=== PATIENT | female | born 1980 | race Caucasian/White ===

== ENCOUNTER → 2018-12-08 10:28 | Outpatient (ROUT) | payer OTHER, SELFPAY | PROVIDERS: Visit Provider Physician Assistant | DX: J02.9 Acute pharyngitis, unspecified (principal) | CPT/HCPCS: 87070; 87077; 87147 ==

== ENCOUNTER → 2020-06-05 11:41 | Outpatient (CLI) | payer OTHER, SELFPAY ==
--- NOTE | 2020-06-05 11:43 | DI.RAD.S_ITS ---
PROCEDURE: XR FOOT RT MIN 3V INDICATIONS: Right foot pain TECHNIQUE: 3 views of the foot were acquired. COMPARISON: None. FINDINGS: Bones: No fractures or dislocations. No suspicious bony lesions. Plantar calcaneal spur. Soft tissues: No tibiotalar joint effusion. Achilles tendon appears normal. IMPRESSION: No acute osseous abnormality. Dictated by: Jose Daniel Callejas M.D. on 06/05/2020 at 10:52 Approved by: Jose Daniel Callejas M.D. on 06/05/2020 at 10:53
== END ==
PROVIDERS: Referring Provider Physician Assistant; Visit Provider Physician Assistant
DX: M79.671 Pain in right foot (principal)
CPT/HCPCS: 73630

== ENCOUNTER → 2020-12-29 14:22 | Outpatient (CLI) | payer OTHER, SELFPAY ==
--- NOTE | 2020-12-29 14:23 | DI.MRI.S_ITS ---
PROCEDURE: MR ANKLE RT WO CON INDICATIONS: Plantar fascial fibromatosis TECHNIQUE: Noncontrast sagittal T1 spin echo and T2 fast spin echo with fat saturation, axial proton density fast spin echo and T2 fast spin echo with fat saturation, coronal T1 spin echo and T2 fast spin echo with fat saturation through the ankle/hindfoot. COMPARISON: None. FINDINGS: Image quality: Excellent. Bones and joints: No acute fracture. Small focus of T2 hyperintense signal in the calcaneus adjacent to the plantar fascia, compatible with contusion. No osteochondral injuries of the talar dome. Small tibiotalar articulation joint effusion. Medial structures: The posterior tibialis, flexor digitorum longus, and flexor hallucis longus tendons are intact. Non circumferential fluid is seen about the posterior tibialis. The posterior tibial neurovascular bundle appears normal within the tarsal tunnel, without extrinsic mass effect. The deltoid ligament is intact. The spring ligament is intact intact. Lateral structures: Disruption of the anterior talofibular ligament. The calcaneofibular and posterior talofibular ligaments appear intact. More superiorly, the anterior and posterior tibiofibular ligaments appear intact. T2 hyperintense signal within the tibiofibular syndesmosis measures slightly greater than 2 mm. The peroneus longus and brevis tendons demonstrate normal location . Non circumferential fluid is seen about the peroneal tendons. The sinus tarsi demonstrates normal fatty signal, without edema, fibrosis, or cyst formation. The calcaneonavicular and calcaneocuboid appear intact. Anterior structures: The tibialis anterior, extensor hallucis longus, and extensor digitorum longus tendons appear intact. The dorsal talonavicular ligament appears intact. Posterior and plantar structures: Achilles tendon is intact. Thickening and inflammatory change of the medial plantar fascia with evidence of partial tear. No abductor digiti quinti muscle atrophy to suggest Mathew neuropathy. IMPRESSION: 1. Disruption of the anterior talofibular ligament. 2. Small tibiotalar articulation joint effusion. 3. Minimal widening of the tibiofibular syndesmosis. 4. Non circumferential fluid surrounding the peroneal and posterior tibialis tendons. 5. Inflammation and partial tear of the medial plantar fascia as well as small contusion of the calcaneus. Dictated by: Juan David Jackson M.D. on 12/29/2020 at 17:05 Approved by: Juan David Jackson M.D. on 12/29/2020 at 17:24
== END ==
PROVIDERS: Referring Provider Podiatrist; Visit Provider Podiatrist
DX: M72.2 Plantar fascial fibromatosis (principal); M25.471 Effusion, right ankle; S96.811A Strain of other specified muscles and tendons at ankle and foot level, right foot, initial encounter; S90.31XA Contusion of right foot, initial encounter
CPT/HCPCS: 73721

== ENCOUNTER 2022-07-25 09:51 | Emergency (ER) | payer OTHER, SELFPAY ==
[2022-07-25 09:54] VITALS: BP 182/93; PULSE 91; RESP 18; TEMP 36.8; O2SAT 99; BMI 39.5
--- NOTE | 2022-07-25 10:20 | ED_ITS ---
HPI - Female Genitourinary General Chief complaint: Urogenital-Female Stated complaint: possible UTI, abcess on lip Time Seen by Provider: 07/25/22 10:08 Source: patient Mode of arrival: Ambulatory History of Present Illness HPI Narrative: Patient here for 2 complaints. Both started on Saturday, 2 days ago. Patient has had dysuria and frequency. Patient states feels like another urinary tract infection. It has been about 20 years since her last urinary tract infection. No fever chills. Patient also complains of left upper lip lesion. Patient states feels like another cold sore. She is had this before. Has had some oozing from this as well. No known sick contacts. It started as a vesicle. Now is flattened and edematous. Mildly tender Related Data Previous Rx's Medication Instructions Recorded paroxetine HCl 10 mg tablet (Paxil) 10 mg PO DAILY depressive symptoms 08/16/21 with anxiety #60 tabs cephalexin 500 mg capsule 500 mg PO QID #28 caps 07/25/22 mupirocin 2 % topical ointment 1 applic topical TID #15 grams 07/25/22 valacyclovir 1 gram tablet 1,000 mg PO BID #14 tabs 07/25/22 Allergies Allergy/AdvReac Type Severity Reaction Status Date / Time erythromycin base Allergy hives as Verified 07/25/22 10:13 an infant hydrocodone Allergy hives, Verified 07/25/22 10:13 violently ill Review of Systems Review of Systems Narrative: GENERAL: negative chills, fatigue, malaise, fever, sweats. HEENT: negative sinus pain, ear pain, sore throat RESPIRATORY: negative dyspnea, cough CARDIOVASCULAR: negative chest pain, palpitations GASTROINTESTINAL: negative nausea, vomiting, abdominal pain : Positive dysuria, frequency, negative hematuria MUSCULOSKELETAL: negative muscle or bony pain SKIN: negative rash, positive skin lesions NEUROLOGIC: negative weakness, numbness ROS Unobtainable: All systems reviewed & are unremarkable except as noted in HPI and below Patient History Medical History Abnormal menses No significant medical problems Substance Use Type: does not use Exam Narrative Exam Narrative: GENERAL: in no distress, not toxic not dyspneic HEAD: Normocephalic. EYES: Pupils equal round ENT: Mucous membranes moist. Left upper lip there is an area 3-4 mm in diameter. It is flat. Not vesicular. Honey-crusted covering. There is edema to the left upper lip as well. It is dry. Mild tender to touch. NECK: Trachea midline. No submandibular tenderness. GASTROINTESTINAL: Abdomen soft, non-tender, no peritoneal signs, no CVA tenderness BACK: No flank tenderness. NEURO: AOx4. SKIN: Warm and dry PSYCH: Not anxious, is cooperative Initial Vital Signs Initial Vital Signs: Vital Signs Temperature 98.3 F 07/25/22 09:54 Pulse Rate 91 H 07/25/22 09:54 Respiratory Rate 18 07/25/22 09:54 Blood Pressure 182/93 H 07/25/22 09:54 Pulse Oximetry 99 07/25/22 09:54 Oxygen Delivery Method Room Air 07/25/22 09:54 Course Orders Ordered: Discontinued Medications Cephalexin HCl (Cephalexin 250 Mg Capsule) 500 mg PO NOW ONE Stop: 07/25/22 10:13 Last Admin: 07/25/22 11:06 Dose: 500 mg Documented By: AMU Vital Signs Vital signs: Vital Signs - 8 hr 07/25/22 09:54 Temperature 98.3 F Pulse Rate 91 H Respiratory Rate 18 Blood Pressure 182/93 H Pulse Oximetry 99 Oxygen Delivery Method Room Air MDM - Female Genitourinary Lab Data Labs: Lab Results 07/25/22 07/25/22 Range/Units 10:02 10:02 Urine RBC 0-1/hpf (0-5/HPF) Urine WBC 1-5/hpf (0-5/HPF) Ur Squamous Epith Cells 1-5 /hpf (0-5/HPF) Urine Bacteria Moderate (10-30) H (None) Ur Culture Indicated? Cult not indicated Urine Test Negative (Negative) [facility] Narrative Medical decision making narrative: Patient here for 2 complaints. Both started on Saturday, 2 days ago. Patient has had dysuria and frequency. Patient states feels like another urinary tract infection. It has been about 20 years since her last urinary tract infection. No fever chills. Patient also complains of left upper lip lesion. Patient states feels like another cold sore. She is had this before. Has had some oozing from this as well. No known sick contacts. It started as a vesicle. Now is flattened and edematous. Mildly tender After history and exam [facility] CC: Lip lesion/dysuria Complicating co-morbidities: History UTI, history of oral cold sores Data collected from: Patient. Medical records reviewed: Walk-in clinic visit at this location just prior to arrival Differential considered: Includes but not limited to herpes simplex impetigo cystitis UTI pyelonephritis Exam documented above, pertinent findings include: Left upper lip lesion Lab Test results independently reviewed as above. Pertinent findings: None indicated this time for lip lesion Lesion on the lip is dry. Urinalysis moderate bacteria Treatments: Keflex Re-evaluations: Reviewed results with patient. Agrees with treatment plan. Keflex to treat for impetigo as well as UTI. Mupirocin ointment prescription provided as well. Discussion: Appropriate for discharge home. Nontoxic at discharge. Patient does have primary care to follow up with. Return precautions reviewed with patient. Patient desires discharge home. Diagnosis: Impetigo/UTI Discharge Plan Departure Patient Disposition: Home Clinical Impression: Cold sore, Urinary tract infection Instructions: DI for Urinary Tract Infection (UTI), DI for Impetigo, DI for Cold Sores Activity Restrictions/Additional Instructions: See family doctor in a week for re-evaluation. Prescription for cold sore as well as urinary tract infection has been provided for you. Prescription Ointment to the lip has been provided for you as well. Return if worse if any questions or concerns. Prescriptions: New valacyclovir 1 gram tablet 1,000 mg PO BID Qty: 14 0RF cephalexin 500 mg capsule 500 mg PO QID Qty: 28 0RF mupirocin 2 % ointment 1 applic topical TID MDD Five day duration Qty: 15 0RF No Action paroxetine HCl [Paxil] 10 mg tablet 10 mg PO DAILY Qty: 60 3RF Rx Instructions: Trial 1 pill each morning for 1 week, then increase to 2 pills each morning and maintain there unless not tolerated Referrals: Obdulio Lorenzo MD [Primary Care Provider] - Stand Alone Forms: Patient Portal/API
[2022-07-25 10:34] LABS: Pregnancy Test Urine Negative (Negative)
[2022-07-25 11:00] LABS: RBC Urine 0-1/HPF (0-5/HPF); Squamous Epithelial Cell Urine 1-5 /HPF (0-5/HPF); WBC Urine 1-5/HPF (0-5/HPF)
[2022-07-25 11:01] LABS: Bacteria Urine Moderate (10-30)
[2022-07-25 11:02] LABS: Culture Indicated Urine Cult Not Indicated
[2022-07-25] MEDS: cephALEXin 250 MG CAPSULE 500 MG PO (11:06)
== END 2022-07-25 11:10 | disposition home or self-care (01) ==
PROVIDERS: Emergency Provider Emergency Medicine; PCP Pediatrics
DX: N39.0 Urinary tract infection, site not specified (principal); B00.1 Herpesviral vesicular dermatitis
CPT/HCPCS: 81015; 81025; 99283

== ENCOUNTER → 2022-12-03 16:07 | Outpatient (CLI) | payer OTHER, SELFPAY ==
--- NOTE | 2022-12-03 16:17 | DI.RAD.S_ITS ---
PROCEDURE: XR FINGER LT MIN 2V INDICATIONS: 2nd finger trauma and pain TECHNIQUE: AP hand, 2 views of the 2nd finger(s) acquired. COMPARISON: None. FINDINGS: Bones: 2nd finger soft tissue swelling without underlying osseous fracture or foreign body. There is an incidental small in exostosis arising from the tuft of the 3rd distal phalanx Soft tissues: No suspicious soft tissue calcifications. IMPRESSION: 2nd finger soft tissue swelling without fracture or foreign body Approved by: Colten Pandey M.D. on 12/03/2022 at 16:32
[2022-12-03 17:43] LABS: Add Manual Diff / Slide Review NO; Basophils Absolute Auto 0 /uL (0-100); Basophils Percent Auto 0.4 % (0-2); Eosinophils Absolute Auto 200 /uL (0-450); Eosinophils Percent Auto 2.4 % (2-4); Hematocrit 35.8 % (36-46); Hemoglobin 11.5 g/dL (12.0-16.0); Lymphocytes Absolute Auto 1900 /uL (1100-4500); Lymphocytes Percent Auto 23.8 % (25-40); Mean Corpuscular HGB Conc 32.1 % (30-36); Mean Corpuscular Hemoglobin 24.8 PG (26-34); Mean Corpuscular Volume 77.4 fL (80-100); Monocytes Absolute Auto 700 /uL (0-900); Monocytes Percent Auto 8.9 % (3-14); Neutrophils Absolute Auto 5000 /uL (1500-7000); Neutrophils Percent Auto 64.5 % (50-75); Platelet Count 187 X10^3/uL (150-400); Red Blood Cell Count 4.62 X10^6/uL (4.0-5.2); Red Cell Distribution Width 16.2 % (11.6-14.8); White Blood Cell Count 7.8 X10^3/uL (4.5-11.0)
[2022-12-03 17:51] LABS: C-Reactive Protein Quant 1.2 mg/dL (<1.0); Creatine Kinase 42 U/L (30-135)
[2022-12-03 18:17] LABS: Anisocytosis 1+; Ovalocytes 1+
[2022-12-03 18:33] LABS: Erythrocyte Sedimentation Rate 17 MM/HR (0-20)
== END ==
PROVIDERS: PCP Pediatrics; Referring Provider Pediatrics; Visit Provider Pediatrics
DX: M79.645 Pain in left finger(s) (principal); M25.449 Effusion, unspecified hand
CPT/HCPCS: 36415; 73140; 82550; 85025; 85651; 86140

== ENCOUNTER → 2023-04-09 10:59 | Outpatient (CLI) | payer OTHER, SELFPAY ==
--- NOTE | 2023-04-09 11:00 | DI.RAD.S_ITS ---
PROCEDURE: XR CHEST 2V INDICATIONS: eval cough TECHNIQUE: 2 views of the chest were acquired. COMPARISON: None. FINDINGS: Surgical changes and devices: None. Lungs and pleura: Lungs are clear. No pleural effusions or pneumothorax. Mediastinum: Mediastinal contours are normal. Heart size is normal. Bones and chest wall: No suspicious bony abnormalities. Soft tissues appear unremarkable. IMPRESSION: No acute cardiopulmonary abnormality is seen. Dictated by: Jose Daniel Callejas M.D. on 04/09/2023 at 11:31 Approved by: Jose Daniel Callejas M.D. on 04/09/2023 at 11:32
== END ==
PROVIDERS: PCP Family Medicine; Referring Provider Family Medicine; Visit Provider Family Medicine
DX: R04.2 Hemoptysis (principal); R05.9 Cough, unspecified
CPT/HCPCS: 71046

== ENCOUNTER 2023-08-30 09:23 | Emergency (ER) | payer OTHER, SELFPAY ==
[2023-08-30 09:34] VITALS: BP 177/107; PULSE 84; RESP 14; TEMP 36.9; O2SAT 99; BMI 38.0
--- NOTE | 2023-08-30 09:54 | ED.BACK ---
HPI - Back Pain/Injury General Chief Complaint: Back Pain/Injury Stated Complaint: Lower back pain Time Seen by Provider: 08/30/23 09:28 Source: patient History of Present Illness HPI Narrative: 43-year-old female presents for lumbar back pain for the last 2 weeks. Thinks she may have tweaked it while doing housework. Patient took a leftover hydrocodone and muscle relaxer without significant improvement. Also took ibuprofen at home. Denies bowel or bladder incontinence, denies saddle anesthesia. Reports some difficulty ambulating due to pain. Pain occasionally radiates down her right leg Related Data Previous Rx's Medication Instructions Recorded valacyclovir 1 gram tablet See Rx Instructions .Route 03/28/23 (Valtrex) .COMPLEX #20 tabs benzonatate 200 mg capsule 200 mg PO BID-TID PRN cough #30 04/04/23 caps methocarbamol 500 mg tablet 500 mg PO TID #30 tabs 08/30/23 methylprednisolone 4 mg tablets in See Rx Instructions PO .COMPLEX 08/30/23 a dose pack (Medrol (Anthony)) #21 ea Allergies Allergy/AdvReac Type Severity Reaction Status Date / Time erythromycin base Allergy hives as Verified 04/09/23 10:37 an infant hydrocodone Allergy hives, Verified 04/09/23 10:37 violently ill Review of Systems Review of Systems Narrative: See HPI Patient History Medical History Hemoptysis Preventative health care Obesity (BMI 30.0-34.9) Family history of colon polyps, unspecified Finger joint swelling Finger pain, left Abnormal menses No significant medical problems Social History Smoking Status: Current some day smoker Smoking Status: Current some day smoker alcohol intake frequency: 0-2 drinks per day Substance Use Type: does not use Exam Initial Vital Signs Initial Vital Signs: Vital Signs Temperature 98.5 F 08/30/23 09:34 Pulse Rate 84 08/30/23 09:34 Respiratory Rate 14 08/30/23 09:34 Blood Pressure 177/107 H 08/30/23 09:34 Pulse Oximetry 99 08/30/23 09:34 Oxygen Delivery Method Room Air 08/30/23 09:34 Const: Awake, alert, no acute distress, nontoxic appearing MSK: Atraumatic, full range of motion, pulses equal Skin: Warm, Dry, intact, no rashes Neuro: AO x3, CN II-XII grossly intact, gait normal Course Orders Ordered: ED Orders 08/30/23 12:04 XR lumbar spine 2-3V Stat Discontinued Medications Acetaminophen (Acetaminophen 325 Mg Tablet) 975 mg PO NOW ONE Stop: 08/30/23 10:48 Last Admin: 08/30/23 10:49 Dose: 975 mg Documented By: VIKY Dexamethasone (Dexamethasone 10 Mg/Ml Vial) 10 mg IV NOW ONE Stop: 08/30/23 09:54 Last Admin: 08/30/23 10:45 Dose: 10 mg Documented By: VIKY Diazepam (Diazepam 10 Mg/2 Ml Syringe) 2 mg IV NOW ONE Stop: 08/30/23 12:05 Last Admin: 08/30/23 12:14 Dose: 2 mg Documented By: VIKY Acetaminophen (Ofirmev) 1,000 mg in 100 mls @ 400 mls/hr IV NOW ONE Stop: 08/30/23 10:07 Last Admin: 08/30/23 10:47 Dose: Not Given Documented By: VIKY Sodium Chloride (Normal Saline 0.9%) 1,000 mls @ 1,000 mls/hr IV BOLUS ONE Stop: 08/30/23 10:52 Last Infusion: 08/30/23 11:57 Dose: Infused Documented By: Admin: 08/30/23 10:42 Dose: 1,000 mls/hr Documented By: VIKY Ketorolac Tromethamine (Ketorolac 30 Mg/Ml Vial) 15 mg IV NOW ONE Stop: 08/30/23 09:54 Last Admin: 08/30/23 10:43 Dose: 15 mg Documented By: VIKY Vital Signs Vital signs: Vital Signs - 8 hr 08/30/23 09:34 08/30/23 12:18 Temperature 98.5 F Pulse Rate 84 68 Respiratory Rate 14 14 Blood Pressure 177/107 H 135/93 H Pulse Oximetry 99 98 Oxygen Delivery Method Room Air MDM - Back Pain/Injury MDM Narrative Medical decision making narrative: Atraumatic lumbar back pain. Neurovascularly intact. No signs or symptoms of cauda equina. Patient initially reported feeling better to nursing staff, but on my evaluation she states she is still having pain in his in any better. X-ray imaging added. X-ray shows mild degenerative disc disease. Patient unhappy, stating that we are not giving her answers on why her back hurts and we have done nothing to fix her, despite being given numerous IV medications. Patient demanded to leave stating that she was going to go to another hospital were they would treat her more appropriately. Discharge Plan Departure Patient Disposition: Home Clinical Impression: Lumbar back pain Instructions: DI for Low Back Pain Activity Restrictions/Additional Instructions: Your x-ray showed that you have mild degenerative disc disease. Take Tylenol and ibuprofen at home for pain. A short course of muscle relaxers has been sent to your pharmacy. Follow up with your primary care doctor Prescriptions: New methocarbamol 500 mg tablet 500 mg PO TID Qty: 30 0RF methylprednisolone [Medrol (Anthony)] 4 mg tablets,dose pack See Rx Instructions .ROUTE .COMPLEX Qty: 21 0RF Rx Instructions: for 6 days No Action benzonatate 200 mg capsule 200 mg PO BID-TID PRN (Reason: cough) Qty: 30 0RF Rx Instructions: please use in substitution for the originally prescribed 150mg capsules valacyclovir [Valtrex] 1 gram tablet See Rx Instructions .Route .COMPLEX Qty: 20 0RF Rx Instructions: Take 2 tabs at onset of cold sores then repeat in 12 hours. Bottle contains enough tabs for multiple outbreaks Referrals: Daniel Tai DO [Primary Care Provider] - Stand Alone Forms: Patient Portal/API
[2023-08-30] MEDS: SODIUM CHLORIDE 0.9% 1,000 ML 1000 ML IV (10:42)
[2023-08-30] MEDS: KETOROLAC 30 MG/ML VIAL 15 MG IV (10:43)
[2023-08-30] MEDS: DEXAMETHASONE 10 MG/ML VIAL IV (10:45)
[2023-08-30] MEDS: ACETAMINOPHEN 325 MG TABLET 975 MG PO (10:49)
--- NOTE | 2023-08-30 12:04 | DI.RAD.S_ITS ---
PROCEDURE: XR LUMBAR SPINE 2-3V INDICATIONS: low back pain TECHNIQUE: 3 views of the lumbar spine were acquired. COMPARISON: None. FINDINGS: Bones: 5 [id number] vertebrae are present. There is normal bony alignment. Mild degenerative endplate changes throughout lumbar spine is seen. No vertebral body compression fractures. No suspicious bony lesions. Soft tissues: Overlying bowel gas pattern is normal. No suspicious soft tissue calcifications. IMPRESSION: Mild degenerative disc disease throughout lumbar spine. No acute compression fracture or spondylolisthesis. Dictated by: Stalin Samaniego M.D. on 08/30/2023 at 12:40 Approved by: Stalin Samaniego M.D. on 08/30/2023 at 12:41
[2023-08-30] MEDS: diazePAM 10 MG/2 ML SYRINGE 2 MG IV (12:14)
[2023-08-30 12:18] VITALS: BP 135/93; PULSE 68; RESP 14; O2SAT 98
== END 2023-08-30 13:06 | disposition home or self-care (01) ==
PROVIDERS: Emergency Provider Emergency Medicine; PCP Family Medicine
DX: M54.50 Low back pain, unspecified (principal)
CPT/HCPCS: 36415; 72100; 96361; 96374; 96375; 99284; J1100; J1885; J3360